=== PATIENT | female | born 1960 | race Caucasian/White ===

== ENCOUNTER → 2023-03-11 | Day surgery (SDC) | payer OTHER ==
--- NOTE | 2023-03-18 11:15 | MM ---
Reason for Exam: Post Procedure Mammogram. Last screening mammogram was performed less than 1 month ago. Patient History: Menarche at age 14. First Full-Term at age 16. Left ovary removed at age 41. Right ovary removed at age 41. Hysterectomy at age 41. Postmenopausal. Maternal unspecified had breast cancer. Risk Values: Heydi 5 year model risk: 1.0%. NCI Lifetime model risk: 4.4%. Prior Study Comparison: 04/28/2001 Bilateral Special View Mammogram, [facility]. 02/26/2023 Bilateral MG 3D diag mammo w/cad BOBBY, [facility]. Tissue Density: Left: There are scattered fibroglandular densities. Pathology Description: Location: 7 o'clock. Marker Left Behind. Needle Type: Mammotome Cores: 12 Skin Nicks: 1 The procedure of ultrasound guided core biopsy was explained to the patient. Benefits, alternatives, and risks were discussed. An informed consent was then obtained. A small 5 mm irregular hypoechoic area 7:00 position 4 cm from the nipple in the left breast is identified and targeted for biopsy. The patient was placed in supine positioning for imaging and for the procedure. The overlying skin was prepped and draped in usual sterile fashion. Lidocaine was used as anesthetic into the skin and subcutaneous tissue up to area of concern in the left breast. Under ultrasound guidance, a 13-gauge vacuum-assisted mammotome Elite biopsy gun was used to obtain 12 core samples. Following this, a Hydromark biopsy clip was left at the site of biopsy The patient tolerated the procedure well without any immediate complication. The patient was kept in the radiology department for short stay after the procedure and then discharged home in stable condition. Postprocedure mammogram: The patient was transferred to mammography for physician ordered post procedure mammogram for clip placement verification. Post procedure mammogram shows clip just adjacent to a superficially located focal asymmetry lower quadrant left breast. Note that this is being viewed with further suspicion as it presented as a patient palpated abnormality. IMPRESSION: Successful, uncomplicated ultrasound guided core biopsy of the small 5 mm, but patient palpated area of concern in the 7:00 left breast, full pathology results to follow. The clip lies just adjacent to the corresponding mammographic focal asymmetry. If benign results, consideration can be given to excision. Pathology Results: Result: Malignant, Invasive ductal carcinoma. LEFT BREAST, 7:00 POSITION, ULTRASOUND GUIDED CORE BIOPSY: Invasive high grade ductal carcinoma. See Surgical Pathology Cancer Case Summary and comment. Overall Assessment: Malignant Assessment: MG diagnostic mammo LT wo CAD. - Left: Known biopsy proven malignancy, BI-RAD 6. Management: Surgical Consultation of the left breast. Electronically signed and approved by: Errol Lovelace M.D. Radiologist
== END ==
LOC: RADUSWWP 12:58
PROVIDERS: ATTEND Family Medicine
DX: C50.912 Malignant neoplasm of unspecified site of left female breast (principal)
CPT/HCPCS: 88305; 88342; 88341; 77065; 19083; A4648

== ENCOUNTER → 2023-04-23 | Outpatient (CLI) | payer OTHER ==
--- NOTE | 2023-04-23 15:15 | P.GSHP ---
History of Present Illness H&P Date: 04/23/23 Chief Complaint: left breast stage IA invasive ductal carcinoma at 7 o'clock position, 832 Giuliana is a 62 year old white female seen in consultation for DR. Ferguson, and Dr. Nolasco. She noted a palpable change in her left breast at 7:00, about 8 weeks ago. This led to bilateral mammogram on 02-26-23. This led to a left breast ultrasound and core biopsy on 03-11-23. The lesion is about 4-5mm in size. Pathology revealed grade 3, triple (+) invasive ductal cancer. She was seen by Dr. Nolasco who recommended surgery first to be followed by radiation and hormonal treatment. Chemo or immono therapy will be decided after surgery. She has not had any surgery on her breast. Not had any recent trauma or infection in her breast. It is not complaining of any other lumps masses or nodules of concern in her breast. She is not complaining of any skin changes in her breast. Caffeine: none nicotine:< 1PPD since 14 years old chocolate: occasional BCP: less than 1 year in her 20's hormones:none Family history: paternal aunt: breasat cancer paternal grandmother: breast cancer Hormonal History: menarche: 14 , breast fed: no, age at : 16 menopause: USMAN hysterectomy at 39; no cancer Surgical History: USMAN/BSO Medical History: boarderline diabetes HTN Social History: nicotine: as above alcohol: occasional drugs: Marijuana daily - Constitutional Constitutional: Denies chills, Denies fever - EENT Eyes: denies blurred vision, denies pain Ears: deny: decreased hearing, tinnitus Ears, nose, mouth and throat: Denies headache, Denies sore throat - Breasts Breasts: bilateral: as per HPI - Cardiovascular Cardiovascular: Reports shortness of breath, Denies chest pain - Respiratory Respiratory: Reports cough - Gastrointestinal Gastrointestinal: Reports as per HPI, Denies abdominal pain, Denies diarrhea, Denies nausea, Denies vomiting - Genitourinary (Female) Genitourinary: Denies dysuria, Denies hematuria - Menstruation Menstruation: Reports post hysterectomy - Musculoskeletal Musculoskeletal: Reports myalgias - Integumentary Integumentary: Denies pruritus, Denies rash - Neurological Neurological: Denies numbness, Denies weakness - Psychiatric Psychiatric: Denies anxiety, Denies depression - Endocrine Endocrine: Denies fatigue, Denies weight change - Hematologic/Lymphatic Comment: none - Allergic/Immunologic Allergic/Immunologic: Reports as per HPI Past Medical History Past Medical History: Diabetes Mellitus, Hypertension History of Any Multi-Drug Resistant Organisms: None Reported Past Surgical History: Hysterectomy Past Anesthesia/Blood Transfusion Reactions: No Reported Reaction Past Psychological History: No Psychological Hx Reported Smoking Status: Current every day smoker Past Alcohol Use History: None Reported Past Drug Use History: None Reported Medications and Allergies Home Medications Medication Instructions Recorded Confirmed Type Benazepril/Hydrochlorothiazide 1 each PO DAILY 02/26/23 04/23/23 History [Benazepril-Hctz 10-12.5 mg Tab] Allergies Allergy/AdvReac Type Severity Reaction Status Date / Time No Known Allergies Allergy Verified 04/23/23 14:26 Surgical - Exam Vital Signs Temp Pulse Resp BP Pulse Ox 98.1 F 90 16 152/93 98 04/23/23 14:50 04/23/23 14:50 04/23/23 14:50 04/23/23 14:50 04/23/23 14:50 - General no distress - Eyes normal ocular movement - ENT no hearing loss - Respiratory normal respiratory effort - Cardiovascular Rhythm: regular Heart Sounds: normal: S1, S2 - Abdomen Abdomen: soft, non tender, no guarding, no rigid, no rebound - Integumentary normal turgor - Neurologic no disoriented, no combative - Musculoskeletal normal gait, normal posture - Psychiatric oriented to time, oriented to person, oriented to place, speech is normal, memory intact Breast Exam: BRA: 38C inspection: bilateral grade 2/3 ptosis palpation: Right breast: Multiple positional exam no dominant masses or nodules of concern Right axilla: No adenopathy of concern Left breast: Multiple positional exam fibrocystic changes, particularly tension at the 7 o'clock position does not reveal a specific lesion, the biopsy site is clean and dry with no evidence of any infection or hematoma Left axilla: No adenopathy of concern Results Mammogram and ultrasound personally reviewed 02-26-23, and 03-11-23 Assessment and Plan Assessment: Impression: left breast invasive ductal carcinoma stage IA Hypertension Nicotine dependence Plan: Presentation of case at tumor board left breast needle localization excisional lumpectomy, possible onco-plastic tissue transfer, sentinel node injection left, left sentinel node biopsy, possible left axillary node dissection Cc: Dr. Ferguson, Dr. Nolasco
[2023-04-23 15:34] VITALS: BP 152/93; PULSE 90; RESP 16; TEMP 98.1
== END ==
LOC: WWCWWP 14:22
PROVIDERS: ATTEND Surgery
DX: C50.912 Malignant neoplasm of unspecified site of left female breast (principal); E11.9 Type 2 diabetes mellitus without complications; F17.210 Nicotine dependence, cigarettes, uncomplicated; I10 Essential (primary) hypertension; Z80.3 Family history of malignant neoplasm of breast

== ENCOUNTER → 2023-05-27 | Outpatient (CLI) | payer OTHER ==
--- NOTE | 2023-05-27 13:37 | P.PN ---
Subjective Progress Note Date: 05/27/23 Principal diagnosis: left breast stage 1 invasive ductal cancer Chief Complaint: left breast stage IA invasive ductal carcinoma at 7 o'clock position, [id number] Giuliana is a 62 year old white female seen in consultation for DR. Ferguson, and Dr. Nolasco. She noted a palpable change in her left breast at 7:00, about 8 weeks ago. This led to bilateral mammogram on 02-26-23. This led to a left breast ultrasound and core biopsy on 03-11-23. The lesion is about 4-5mm in size. Pathology revealed grade 3, triple (+) invasive ductal cancer. She was seen by Dr. Nolasco who recommended surgery first to be followed by radiation and hormonal treatment. Chemo or immono therapy will be decided after surgery. She has not had any surgery on her breast. Not had any recent trauma or infection in her breast. It is not complaining of any other lumps masses or nodules of concern in her breast. She is not complaining of any skin changes in her breast. Note 04-05-23 medical oncology reviewed Caffeine: none nicotine:< 1PPD since 14 years old chocolate: occasional BCP: less than 1 year in her 20's hormones:none Family history: paternal aunt: breasat cancer paternal grandmother: breast cancer Hormonal History: menarche: 14 , breast fed: no, age at : 16 menopause: USMAN hysterectomy at 39; no cancer Surgical History: USMAN/BSO Medical History: boarderline diabetes HTN Social History: nicotine: as above alcohol: occasional drugs: Marijuana daily - Constitutional Constitutional: Denies chills, Denies fever - EENT Eyes: denies blurred vision, denies pain Ears: deny: decreased hearing, tinnitus Ears, nose, mouth and throat: Denies headache, Denies sore throat - Breasts Breasts: bilateral: as per HPI - Cardiovascular Cardiovascular: Reports shortness of breath, Denies chest pain - Respiratory Respiratory: Reports cough - Gastrointestinal Gastrointestinal: Reports as per HPI, Denies abdominal pain, Denies diarrhea, Denies nausea, Denies vomiting - Genitourinary (Female) Genitourinary: Denies dysuria, Denies hematuria - Menstruation Menstruation: Reports post hysterectomy - Musculoskeletal Musculoskeletal: Reports myalgias - Integumentary Integumentary: Denies pruritus, Denies rash - Neurological Neurological: Denies numbness, Denies weakness - Psychiatric Psychiatric: Denies anxiety, Denies depression - Endocrine Endocrine: Denies fatigue, Denies weight change - Hematologic/Lymphatic Comment: none - Allergic/Immunologic Allergic/Immunologic: Reports as per HPI Past Medical History Past Medical History: Diabetes Mellitus, Hypertension History of Any Multi-Drug Resistant Organisms: None Reported Past Surgical History: Hysterectomy Past Anesthesia/Blood Transfusion Reactions: No Reported Reaction Past Psychological History: No Psychological Hx Reported Smoking Status: Current every day smoker Past Alcohol Use History: None Reported Past Drug Use History: None Reported Medications and Allergies Home Medications Medication Instructions Recorded Confirmed Type Benazepril/Hydrochlorothiazide 1 each PO DAILY 02/26/23 04/23/23 History [Benazepril-Hctz 10-12.5 mg Tab] Allergies Allergy/AdvReac Type Severity Reaction Status Date / Time No Known Allergies Allergy Verified 04/23/23 14:26 Objective - Vital Signs Vital signs: Vital Signs Temp 97.8 F 05/27/23 13:22 Pulse 83 05/27/23 13:22 Resp 17 05/27/23 13:22 BP 111/74 05/27/23 13:22 Pulse Ox 97 05/27/23 13:22 FiO2 Intake & Output 05/26/23 05/27/23 05/27/23 18:59 06:59 18:59 Weight 65.771 kg - Constitutional General appearance: Present: cooperative - EENT Eyes: Present: EOMI ENT: Present: hearing grossly normal - Neck Neck: Present: normal ROM - Respiratory Respiratory: bilateral: CTA - Cardiovascular Heart sounds: normal: S1, S2 - Gastrointestinal General gastrointestinal: Present: soft - Integumentary Integumentary: Present: normal turgor - Musculoskeletal Musculoskeletal: Present: gait normal - Psychiatric Psychiatric: Present: A&O x's 3, appropriate affect, intact judgment & insight - Additional findings Additional findings: Breast Exam: BRA: 38C inspection: bilateral grade 2/3 ptosis palpation: Right breast: Multiple positional exam no dominant masses or nodules of concern Right axilla: No adenopathy of concern Left breast: Multiple positional exam fibrocystic changes, particularly attention at the 7 o'clock position does not reveal a specific lesion, the biopsy site is clean and dry with no evidence of any infection or hematoma Left axilla: No adenopathy of concern Assessment and Plan Assessment: Impression: left breast invasive ductal carcinoma stage IA Hypertension Nicotine dependence Plan: Presentation of case at tumor board left breast needle localization excisional lumpectomy, possible onco-plastic tissue transfer, sentinel node injection left, left sentinel node biopsy, possible left axillary node dissection The patients case was presented at tumor board. The plan is for needle local ization lumpectomy, and SNB possible AND. Possible oncoplastic tissue transfer. I have called and spoken with the patient regarding this. Surgical options have been discussed with the patient, including risks and benefits. Risks include but are not limited to bleeding, infection, reaction to the anesthetic. There is a risk of the margins are positive that additional guan rgery would be needed if patient chooses a lumpectomy. We have also discussed lymphedema, decreased sensation to the inner arm, and possible injury to the thoracodorsal and long thoracic nerves. The patient understands and wishes to proceed. The following will be done. Cc: Dr. Constance Fernandez
[2023-05-27 13:39] VITALS: BP 111/74; PULSE 83; RESP 17; TEMP 97.8
== END ==
LOC: WWCWWP 12:41
PROVIDERS: ATTEND Surgery
DX: C50.912 Malignant neoplasm of unspecified site of left female breast (principal); E11.9 Type 2 diabetes mellitus without complications; F17.210 Nicotine dependence, cigarettes, uncomplicated; I10 Essential (primary) hypertension; Z80.3 Family history of malignant neoplasm of breast; Z88.8 Allergy status to other drugs, medicaments and biological substances; Z79.899 Other long term (current) drug therapy

== ENCOUNTER 2023-06-01 07:20 | Day surgery (SDC) | payer OTHER ==
[~2023-06-01 07:20] MED LIST: DEXAMETHASONE SOD PHOSPHATE 4 MG/ML 1 ML VIAL IV ONE; HEPARIN SODIUM,PORCINE/PF 5,000 UNIT/0.5 ML SYRINGE SQ PRN; HYDROmorphone 0.5 MG/0.5 ML SYRINGE IVP PRN; LACTATED RINGERS 1,000 ML IV SCH; LIDOCAINE 1% (10MG/ML) FOR IV START INTRADERMA PRN; ONDANSETRON 4 MG/2 ML VIAL IVP ONE; droPERidol 5 MG/2 ML VIAL IVP ONE
[2023-06-01] MEDS ORDERED: ALPRAZolam 0.5 MG TAB ONE (07:55)
[2023-06-01] MEDS ORDERED: ALPRAZolam 0.5 MG TAB PO ONE (07:59)
[2023-06-01] MEDS ORDERED: LIDOCAINE 1% INJ 10MG/ML (20 ML MDV) SQ ONE (08:42)
--- NOTE | 2023-06-01 09:24 | P.NAPBC ---
NAPBC Queries - NAPBC Queries Was patient's case review presented at [facility] tumor board? If no, comment.: Yes Was patient's pathology reviewed at [facility]? If no, comment.: Yes Was breast conservation surgery offered? If no, comment.: Yes Was sentinel node biopsy offered? If no, comment.: Yes Was diagnosis confirmed by percutaneous core biopsy? If no, comment.: Yes Is patient mastectomy patient?: No Was a preop referral to reconstructive surgeon offered?: No Clinical Stage: Stage 1 left breast invasive ductal cancer [id number]
[2023-06-01] MEDS ORDERED: SUCCINYLCHOLINE CHLORIDE 200 MG/10 ML VIAL IV ONE (09:29)
[2023-06-01] MEDS ORDERED: PROPOFOL 10 MG/ML 20 ML VIAL IV ONE (09:29)
[2023-06-01] MEDS ORDERED: LIDOCAINE 1% INJ 10MG/ML (20 ML MDV) ONE (09:29)
[2023-06-01] MEDS ORDERED: fentaNYL (PF) 50 MCG/ML 2 ML AMP ONE (09:29)
--- NOTE | 2023-06-01 10:43 | NM ---
EXAMINATION TYPE: NM sentinel node injection DATE OF EXAM: 06/01/2023 COMPARISON: NONE CLINICAL INDICATION: Female, 62 years old with history of Breast cancer; TECHNIQUE AND FINDINGS: The procedure of sentinel lymph node injection was explained to the patient. The benefits, alternatives, and risks were discussed. An informed consent was then obtained. Overlying skin is cleaned with sterile alcohol. Following this, 475 uCi Tc99m Tilmanocept was inject ed in the upper outer aspect of the left nipple intradermally. The patient tolerated the procedure well without any immediate complication. The patient was kept in the radiology department for short stay after the procedure and then taken to surgery for surgical p rocedure what is presumed intraoperative gamma probe will be used for sentinel lymph node detection. IMPRESSION: left breast radiotracer injection for sentinel node localization as above.
--- NOTE | 2023-06-01 10:55 | P.OP ---
Date of Procedure: 06/01/23 Preoperative Diagnosis: Left breast invasive ductal carcinoma Postoperative Diagnosis: Same Procedure(s) Performed: Left breast sentinel node biopsy, needle localization lumpectomy, onco-plastic tissue transfer 65 cm Anesthesia: SHARLAA Surgeon: Alexandrea Miner Estimated Blood Loss (ml): 5 IV fluids (ml): 500 Pathology: other (Axillarytissue, lumpectomy left breast) Condition: stable Disposition: same day Indications for Procedure: Biopsy-proven left breast invasive ductal carcinoma Operative Findings: Fibrofatty breast tissue Description of Procedure: The patient is a 62-year-old white female diagnosed with a left breast invasive ductal carcinoma. Preoperatively she underwent needle localization in the radiology department. Additionally radi0 tracer was injected in the periareolar region. The patient was brought to the operative suite. Following induction of anesthesia the neoprobe was used to interrogate the axilla. Radioactivity was noted to be present. The left breast and axilla were then prepped and draped in a sterile fashion. The axilla was approached initially. Using the neoprobe the area of greatest radioactivity was identified. An incision was made and carried down to the area of increased radioactivity. This was in the deep axillary tissue. The surrounding tissue was excised. Three sentinel lymph nodes were identified. [place] node #1 had a 10 second count of 2244, sentinel lymph node #2, 10 second count of 21,520, sentinel node #3 had a 10 second count of 11,707. The background count was 37. No other lymph nodes of concern were identified. The deep tissues were closed using 3-0 Vicryl suture after we were assured that hemostasis was attained. The subcutaneous tissues were closed using 3-0 Vicryl suture. The skin was closed using a subcuticular 4-0 Monocryl suture. Following this the area of the breast was approached. An incision was made near the needle which was localizing the lesion. Dissection was carried down to the shaft of the needle. Surrounding tissue was excised. Anteriorly dissection was performed directly under the skin. Posteriorly dissection was performed to the muscle of the chest wall. The specimen size was 7 x 6 cm. Following this the specimen was removed and painted for orientation. Radiograph revealed that the area of concern had been removed. A superior pillar 6 x 3 cm was developed. Inferior pillar 5 x 1 cm was developed. Titanium clips were placed. The pillars were brought together using 3-0 Vicryl suture. Onco-plastic tissue transfer of 65 cm was developed. After we were assured that hemostasis was attained the subcutaneous tissues were closed using 3-0 Vicryl suture. This was followed by closure of the skin using 4-0 Monocryl. The patient tolerated the procedure in stable condition. All instrument and sponge counts were correct at the end of the case.
[2023-06-01 11:17] VITALS: TEMP 97.2
[2023-06-01] MEDS ORDERED: HYDROcodone/APAP 5-325MG 1 EACH TAB ONE (12:22)
[2023-06-01] MEDS ORDERED: HYDROcodone/APAP 5-325MG 1 EACH TAB PO ONE (12:23)
[2023-06-01 13:39] VITALS: BP 138/75; PULSE 61; RESP 18
--- NOTE | 2023-06-08 09:11 | MM ---
Pathology Description: Approach: Medial to Lateral Needle Type: 5 cm [place] Skin Nicks: 1 The procedure of needle localization with wire placement and than surgical excision was explained to the patient. Benefits, alternatives, and risks were discussed. An informed consent was then obtained. The shortest pathway for procedure was chosen. Shortest pathway was medial approach. The overlying skin was prepped and draped in usual sterile fashion. Lidocaine buffered with bicarbonate was used as anesthetic into the skin and subcutaneous tissue up to the level of area of concern. A 5 cm needle was used. It was placed via a mediolateral approach under mammographic guidance. Subsequent 90 degrees mammogram show the needle to be in satisfactory position relative to the targeted area. At this point, wire was placed and the needle was withdrawn. The wire was fixed to patient's skin. Images were marked for surgeon. The patient tolerated the procedure well without any immediate complication. The patient was kept in the radiology department for short stay after the procedure and then taken to surgery for surgical excision. Targeted clip and wire are identified in specimen mammogram. The patient was kept in hospital for short stay after the procedure and then discharged home in stable condition. Impression: Successful, uncomplicated needle localization with wire placement and surgical excision of suspicious group of calcifications in the left breast, full pathology results to follow. Pathology Results: Result: Malignant, Invasive ductal carcinoma. A. SENTINEL LYMPH NODE #1, DISSECTION: One sentinel lymph node, negative for metastatic carcinoma. CK7 and ANA MARIA stains performed with appropriate controls on blocks A1 and A2 all negative for features of metastatic carcinoma. B. SENTINEL LYMPH NODE #2, DISSECTION: One sentinel lymph node, negative for metastatic carcinoma. CK7 and ANA MARIA stains performed with appropriate controls on block B1 all negative for features of metastatic carcinoma. C. SENTINEL LYMPH NODE #3, DISSECTION: Two sentinel lymph nodes, each negative for metastatic carcinoma. CK7 and ANA MARIA stains performed with appropriate controls on blocks C1 and C2 all negative for features of metastatic carcinoma. D. LEFT BREAST, LUMPECTOMY: Invasive high grade ductal carcinoma with high grade ductal carcinoma in situ (DCIS). See surgical pathology cancer case summary and comment. All margins negative for invasive carcinoma and DCIS. Overall Assessment: Malignant Management: Surgical Consultation of the left breast. Diagnostic Mammogram of the left breast in 6 months. Electronically signed and approved by: Eladio Mccabe M.D. Radiologis
== END 2023-06-01 13:15 | disposition home or self-care (01) ==
LOC: OR 07:20
PROVIDERS: ATTEND Surgery
DX: D05.12 Intraductal carcinoma in situ of left breast (principal); I10 Essential (primary) hypertension; F12.90 Cannabis use, unspecified, uncomplicated; F17.210 Nicotine dependence, cigarettes, uncomplicated; Z79.899 Other long term (current) drug therapy
CPT/HCPCS: 38525; 84132; 88342; 88307; 88341; 76098; 19281; 38792; 19301; C1819; A9520; J0330; J1100; J2405; J2001; J3010; J2704; J1644

== ENCOUNTER → 2023-06-11 | Outpatient (CLI) | payer OTHER ==
--- NOTE | 2023-06-11 09:51 | P.PN ---
Progress Note - Text Progress Note Date: 06/11/23 Giuliana is a 62 year old female status post left breast lumpectomy and SNB on 06-01-23. Four Sentinal nodes were removed all (-) for cancer. All margins were (-). Tumor 11mm in sized, closest to anterior margin. Tumor high grade invasive ductal and DCIS. Emanation: Lungs: Slight wheezing at the right base Heart: Regular rate and rhythm Incision axilla and breast clean and dry no evidence of infection Mild ecchymosis left breast Impression: Patient doing well Plan: Follow-up medical oncology Follow-up radiation oncology Follow-up appearance 4 months CC: CC: Lexus Valencia
[2023-06-11 11:51] VITALS: BP 136/87; PULSE 84; RESP 17; TEMP 98.3
== END ==
LOC: WWCWWP 09:40
PROVIDERS: ATTEND Surgery
DX: L76.82 Other postprocedural complications of skin and subcutaneous tissue (principal); Z88.8 Allergy status to other drugs, medicaments and biological substances

== ENCOUNTER → 2023-08-13 | Outpatient (CLI) | payer OTHER ==
[2023-08-13 15:57] VITALS: BP 182/81; PULSE 92; RESP 17; TEMP 97.9
--- NOTE | 2023-08-13 15:59 | P.PN ---
Subjective Progress Note Date: 08/13/23 left breast stage IA invasive ductal carcinoma at 7 o'clock position, [id number] Giuliana is a 63 year old white female seen in consultation for DR. Ferguson, and Dr. Nolasco. She noted a palpable change in her left breast at 7:00. This led to bilateral mammogram on 02-26-23. This led to a left breast ultrasound and core biopsy on 03-11-23. The lesion is about 4-5mm in size. Pathology revealed grade 3, triple (+) invasive ductal cancer. She was seen by Dr. Nolasco who recommended surgery first to be followed by radiation and hormonal treatment. Chemo or immono therapy to be decided after surgery. The patient had a left breast lumpectomy and SNB on 06-01-23. Tumor 11 mm high grade invasive ductal and DCIS. Four sentinel nodes all (-). [facility] oncology 07-16-23 recommended radiation therapy appointment 06-23-23 medical oncology recommended chemotherapy ad hormone therapy She complains of some intermittent sporadic pain in her breast. She was recently started on a prescription for antibiotics and the pain has resolved. She has not had any fever or chills. Caffeine: none nicotine:< 1PPD since 14 years old chocolate: occasional BCP: less than 1 year in her 20's hormones:none Family history: paternal aunt: breasat cancer paternal grandmother: breast cancer Hormonal History: menarche: 14 , breast fed: no, age at : 16 menopause: USMAN hysterectomy at 39; no cancer Surgical History: USMAN/BSO Medical History: boarderline diabetes HTN Social History: nicotine: as above alcohol: occasional drugs: Marijuana daily - Constitutional Constitutional: Denies chills, Denies fever - EENT Eyes: denies blurred vision, denies pain Ears: deny: decreased hearing, tinnitus Ears, nose, mouth and throat: Denies headache, Denies sore throat - Breasts Breasts: bilateral: as per HPI - Cardiovascular Cardiovascular: Reports shortness of breath, Denies chest pain - Respiratory Respiratory: Reports cough - Gastrointestinal Gastrointestinal: Reports as per HPI, Denies abdominal pain, Denies diarrhea, Denies nausea, Denies vomiting - Genitourinary (Female) Genitourinary: Denies dysuria, Denies hematuria - Menstruation Menstruation: Reports post hysterectomy - Musculoskeletal Musculoskeletal: Reports myalgias - Integumentary Integumentary: Denies pruritus, Denies rash - Neurological Neurological: Denies numbness, Denies weakness - Psychiatric Psychiatric: Denies anxiety, Denies depression - Endocrine Endocrine: Denies fatigue, Denies weight change - Hematologic/Lymphatic Comment: none - Allergic/Immunologic Allergic/Immunologic: Reports as per HPI Past Medical History Past Medical History: Diabetes Mellitus, Hypertension History of Any Multi-Drug Resistant Organisms: None Reported Past Surgical History: Hysterectomy Past Anesthesia/Blood Transfusion Reactions: No Reported Reaction Past Psychological History: No Psychological Hx Reported Smoking Status: Current every day smoker Past Alcohol Use History: None Reported Past Drug Use History: None Reported Medications and Allergies Home Medications Medication Instructions Recorded Confirmed Type Benazepril/Hydrochlorothiazide 1 each PO DAILY 02/26/23 04/23/23 History [Benazepril-Hctz 10-12.5 mg Tab] Allergies Allergy/AdvReac Type Severity Reaction Status Date / Time No Known Allergies Allergy Verified 04/23/23 14:26 Objective - Vital Signs Vital signs: Vital Signs Temp 97.9 F 08/13/23 15:37 Pulse 92 08/13/23 15:37 Resp 17 08/13/23 15:37 BP 182/81 08/13/23 15:37 Pulse Ox 97 08/13/23 15:37 FiO2 Intake & Output 08/12/23 08/13/23 08/13/23 18:59 06:59 18:59 Weight 61.235 kg - Constitutional General appearance: Present: cooperative - EENT Eyes: Present: EOMI ENT: Present: hearing grossly normal - Neck Neck: Present: normal ROM - Respiratory Respiratory: bilateral: CTA - Cardiovascular Heart sounds: normal: S1, S2 - Integumentary Integumentary: Present: normal turgor - Musculoskeletal Musculoskeletal: Present: gait normal - Psychiatric Psychiatric: Present: A&O x's 3, appropriate affect, intact judgment & insight - Additional findings Additional findings: Breast Exam: BRA: 38C inspection: bilateral grade 2/3 ptosis palpation: Right breast: Multiple positional exam no dominant masses or nodules of concern Right axilla: No adenopathy of concern Left breast: Multiple positional exam fibrocystic changes, well healed scar 6 o'clock position no evidence of any recurrent cancer no evidence of infection or hematoma Left axilla: No adenopathy of concern Assessment and Plan Assessment: Impression: Left breast invasive ductal carcinoma stage I a ER/UT positive HER-2/carrol po sitive Plan: Patient is going to have chemotherapy as per Dr. Nolasco Patient will then follow with radiation oncology Patient will follow up here in 4 months Bilateral mammogram in February with examination at that time CC: Dr. Ferguson
== END ==
LOC: WWCWWP 14:57
PROVIDERS: ATTEND Surgery
DX: C50.912 Malignant neoplasm of unspecified site of left female breast (principal); E11.9 Type 2 diabetes mellitus without complications; I10 Essential (primary) hypertension; F17.200 Nicotine dependence, unspecified, uncomplicated; Z90.710 Acquired absence of both cervix and uterus; Z51.11 Encounter for antineoplastic chemotherapy; Z80.3 Family history of malignant neoplasm of breast; Z90.722 Acquired absence of ovaries, bilateral; Z88.5 Allergy status to narcotic agent; F12.90 Cannabis use, unspecified, uncomplicated

== ENCOUNTER → 2023-09-06 | Outpatient (CLI) | payer OTHER ==
--- NOTE | 2023-09-07 10:04 | CA ---
Transthoracic Echo Report Name: Giuliana Rehman Age: 63 Gender: F : 1960 Exam Date: 09/06/2023 15:44 Exam Location: [place] [facility] Ht (in): 63 Wt (lb): 140 Ordering Physician: Patrick Nolasco MD Attending/Referring Phys: Patrick Nolasco MD Leather Worker Maureen Ackerman [facility] Procedure CPT: Indications: Z01.818 Chemo Cardiac Hx: Technical Quality: Fair Contrast 1: Total Dose (mL): Contrast 2: Total Dose (mL): MEASUREMENTS (Male / Female) Normal Values 2D ECHO LV Diastolic Diameter PLAX 4.4 cm 4.2 - 5.9 / 3.9 - 5.3 cm LV Systolic Diameter PLAX 3.1 cm IVS Diastolic Thickness 1.0 cm 0.6 - 1.0 / 0.6 - 0.9 cm LVPW Diastolic Thickness 0.9 cm 0.6 - 1.0 / 0.6 - 0.9 cm LV Relative Wall Thickness 0.4 LVOT Diameter 2.0 cm M-MODE Aortic Root Diameter MM 2.5 cm LA Systolic Diameter MM 3.6 cm LA Ao Ratio MM 1.4 AV Cusp Separation MM 1.9 cm DOPPLER AV Peak Velocity 107.8 cm/s AV Peak Gradient 4.6 mmHg AV Mean Velocity 68.3 cm/s AV Mean Gradient 2.2 mmHg AV Velocity Time Integral 19.5 cm LVOT Peak Velocity 95.7 cm/s LVOT Peak Gradient 3.7 mmHg LVOT Velocity Time Integral 15.3 cm LVOT Stroke Volume 46.1 cm??? LVOT Stroke Volume Index 27.7 ml/m??? LVOT Cardiac Index 2233.3 cm???/min???m??? AV Area Cont Eq vti 2.4 cm??? AV Area Cont Eq pk 2.7 cm??? Mitral E Point Velocity 53.4 cm/s Mitral A Point Velocity 102.3 cm/s Mitral E to A Ratio 0.5 MV Deceleration Time 230.8 ms LV E' Lateral Velocity 8.1 cm/s Mitral E to LV E' Lateral Ratio 6.6 LV E' Septal Velocity 6.8 cm/s Mitral E to LV E' Septal Ratio 7.8 Right Atrial Pressure 3.0 mmHg FINDINGS Left Ventricle Mild concentric LVH. Left ventricular cavity size normal. Normal left ventricular systolic function with no obvious regional wall motion abnormalities. Left ventricular ejection fraction is estimated at 60-65%. Right Ventricle Normal right ventricular size. Right Atrium Normal right atrial size. Left Atrium Normal left atrial size. Mitral Valve Structurally normal mitral valve. No mitral regurgitation. Aortic Valve Aortic valve not well visualized. No aortic valve stenosis or regurgitation. Tricuspid Valve Structurally normal tricuspid valve. No tricuspid regurgitation. Pulmonic Valve Pulmonic valve not well visualized. Pericardium Minimal pericardial effusion (normal variant). Echo free space anterior to the right ventricle likely represents a fat pad. Aorta Normal size aortic root. CONCLUSIONS Left ventricular ejection fraction is estimated at 60-65%. No obvious regional wall motion abnormalities. Mild concentric LVH. Grade 1 diastolic dysfunction No significant valvular dysfunction Global longitudinal streaking estimated at -17.2%. (Normal -20%) Previewed by: Dr Alexis Lozada (Electronically Signed) Final Date: 07 September 2023 10:03
== END | disposition home or self-care (01) ==
LOC: RADECHMAIN 15:40
PROVIDERS: ATTEND Internal Medicine Hematology & Oncology
DX: Z01.818 Encounter for other preprocedural examination (principal); I10 Essential (primary) hypertension; E78.5 Hyperlipidemia, unspecified; C50.312 Malignant neoplasm of lower-inner quadrant of left female breast; E11.9 Type 2 diabetes mellitus without complications; Z17.0 Estrogen receptor positive status [ER+]
CPT/HCPCS: 93306

== ENCOUNTER → 2023-12-06 | Outpatient (CLI) | payer OTHER ==
--- NOTE | 2023-12-06 19:39 | CA ---
Transthoracic Echo Report Name: Giuliana Rehman Age: 63 Gender: F : 1960 Exam Date: 12/06/2023 16:03 Exam Location: [place] [facility] Ht (in): 64 Wt (lb): 141 Ordering Physician: Patrick Nolasco MD Attending/Referring Phys: Substitute Teacher Thelma Davila RDCS Procedure CPT: Indications: Z01.818 Chemo exposure Cardiac Hx: Technical Quality: Good Contrast 1: Total Dose (mL): Contrast 2: Total Dose (mL): MEASUREMENTS (Male / Female) Normal Values 2D ECHO LV Diastolic Diameter PLAX 4.0 cm 4.2 - 5.9 / 3.9 - 5.3 cm LV Systolic Diameter PLAX 3.1 cm IVS Diastolic Thickness 1.1 cm 0.6 - 1.0 / 0.6 - 0.9 cm LVPW Diastolic Thickness 1.1 cm 0.6 - 1.0 / 0.6 - 0.9 cm LV Relative Wall Thickness 0.5 RV Internal Dim ED PLAX 3.1 cm LA Systolic Diameter LX 3.6 cm 3.0 - 4.0 / 2.7 - 3.8 cm LA Volume 47.8 cm??? 18 - 58 / 22 - 52 cm??? LA Volume Index 28.0 cm???/m??? 16 - 28 cm???/m??? Aorta at Sinotubular Diameter 3.5 cm DOPPLER AV Peak Velocity 139.8 cm/s AV Peak Gradient 7.8 mmHg FINDINGS Left Ventricle Left ventricular ejection fraction is estimated at 50-55 %. Left ventricular cavity size normal. Mildly increased septal wall thickness. Mildly increased posterior wall thickness. Right Ventricle Normal right ventricular size. Unable to estimate the right ventricular systolic pressure. Right Atrium Normal right atrial size. Left Atrium Normal left atrial size. Mitral Valve Structurally normal mitral valve. No mitral stenosis, regurgitation or prolapse. Aortic Valve Trileaflet aortic valve. No aortic valve stenosis or regurgitation. Tricuspid Valve Structurally normal tricuspid valve. No tricuspid stenosis, regurgitation or prolapse. Pulmonic Valve Pulmonic valve not well visualized. Pericardium No pericardial effusion. Aorta Normal size aortic root and proximal ascending aorta. CONCLUSIONS Normal biventricular dimensions and systolic function No significant valvular abnormalities noted Normal aortic root and proximal ascending aorta Previewed by: Dr. Yury Westfall MD (Electronically Signed) Final Date: 06 December 2023 19:38
== END | disposition home or self-care (01) ==
LOC: RADECHMAIN 15:48
PROVIDERS: ATTEND Internal Medicine Hematology & Oncology
DX: Z01.818 Encounter for other preprocedural examination (principal); C50.312 Malignant neoplasm of lower-inner quadrant of left female breast; I10 Essential (primary) hypertension; E11.9 Type 2 diabetes mellitus without complications; Z17.0 Estrogen receptor positive status [ER+]
CPT/HCPCS: 93306

== ENCOUNTER → 2023-12-06 | Outpatient (CLI) | payer OTHER | END | disposition home or self-care (01) | LOC: LABWHC1 11:33 | PROVIDERS: ATTEND Obstetrics & Gynecology Obstetrics | DX: N83.209 Unspecified ovarian cyst, unspecified side (principal); R19.00 Intra-abdominal and pelvic swelling, mass and lump, unspecified site | CPT/HCPCS: 36415; 81503 ==

== ENCOUNTER → 2024-05-12 | Outpatient (CLI) | payer OTHER ==
--- NOTE | 2024-05-12 13:27 | CA ---
Transthoracic Echo Report Name: Giuliana Rehman Age: 63 Gender: F : 1960 Exam Date: 05/12/2024 10:24 Exam Location: [place] [facility] Ht (in): 64 Wt (lb): 138 Ordering Physician: Patrick Nolasco MD Attending/Referring Phys: Patrick Nolasco MD Gear Shaver Set Up Operator Ml Sykes RDCS Procedure CPT: Indications: Z01.818 Chemo Cardiac Hx: Technical Quality: Fair Contrast 1: Total Dose (mL): Contrast 2: Total Dose (mL): MEASUREMENTS (Male / Female) Normal Values 2D ECHO LV Diastolic Diameter PLAX 4.0 cm 4.2 - 5.9 / 3.9 - 5.3 cm LV Systolic Diameter PLAX 2.3 cm IVS Diastolic Thickness 1.2 cm 0.6 - 1.0 / 0.6 - 0.9 cm LVPW Diastolic Thickness 1.2 cm 0.6 - 1.0 / 0.6 - 0.9 cm LV Relative Wall Thickness 0.6 RV Internal Dim ED PLAX 3.0 cm LA Volume 31.3 cm??? 18 - 58 / 22 - 52 cm??? LA Volume Index 18.5 cm???/m??? 16 - 28 cm???/m??? M-MODE Aortic Root Diameter MM 2.9 cm LA Systolic Diameter MM 3.9 cm LA Ao Ratio MM 1.4 AV Cusp Separation MM 2.2 cm DOPPLER AV Peak Velocity 116.0 cm/s AV Peak Gradient 5.4 mmHg AV Mean Velocity 71.1 cm/s AV Mean Gradient 2.5 mmHg AV Velocity Time Integral 20.6 cm LVOT Peak Velocity 106.6 cm/s LVOT Peak Gradient 4.5 mmHg LVOT Velocity Time Integral 22.4 cm MV Area PHT 3.3 cm??? Mitral E Point Velocity 70.3 cm/s Mitral A Point Velocity 106.9 cm/s Mitral E to A Ratio 0.7 MV Deceleration Time 228.7 ms MV E' Velocity 7.1 cm/s Mitral E to MV E' Ratio 10.0 FINDINGS Left Ventricle Mildly increased left ventricular wall thickness. Left ventricular cavity size normal. Normal left ventricular systolic function with no obvious regional wall motion abnormalities. Left ventricular ejection fraction is estimated at 55-60 %. Grade 1 diastolic dysfunction. LV strain was attempted but images were suboptimal. Right Ventricle Normal right ventricular size and function. Right ventricular systolic pressure within normal limits. Right Atrium Normal right atrial size. Left Atrium Normal left atrial size. Mitral Valve Structurally normal mitral valve. Mild mitral annular calcification. Trace mitral regurgitation. Aortic Valve Trileaflet aortic valve. No aortic valve stenosis or regurgitation. Tricuspid Valve Structurally normal tricuspid valve. Trace to mild tricuspid regurgitation. Pulmonic Valve Structurally normal pulmonic valve. Pericardium No pericardial effusion. Aorta Normal size aortic root and proximal ascending aorta. CONCLUSIONS LVEF 55 to 60% No obvious regional wall motion abnormality Mild concentric LVH Grade 1 diastolic function Normal RV size and systolic function No significant valvular dysfunction Previewed by: Dr Alexis Lozada (Electronically Signed) Final Date: 12 May 2024 13:26
== END | disposition home or self-care (01) ==
LOC: RADECHMAIN 10:06
PROVIDERS: ATTEND Internal Medicine Hematology & Oncology
DX: Z01.818 Encounter for other preprocedural examination (principal); I08.1 Rheumatic disorders of both mitral and tricuspid valves
CPT/HCPCS: 93306

== ENCOUNTER → 2024-05-12 | Outpatient (CLI) | payer OTHER ==
--- NOTE | 2024-05-12 12:30 | BD ---
EXAMINATION TYPE: Axial Bone Density DATE OF EXAM: 05/12/2024 CLINICAL HISTORY: 63 years old Female. ICD-10 CODE: M81.0 OSTEO Height: 64 Weight: 138.0 FRAX RISK QUESTIONS: Alcohol (3 or more units per day): NO Family History (Parent hip fracture): no Glucocorticoids (More than 3mos): no (Ex: prednisone, prednisolone, methylprednisolone, dexamethasone, and hydrocortisone). History of Fracture in Adulthood: no Secondary Osteoporosis: 1. Type 1 Diabetes: no 2. Hyperthyroidism: no 3. Menopause before 45: no 4. Malnutrition: no 5. Chronic liver disease: no Rheumatoid Arthritis: no Current Tobacco Use: yes RISK FACTORS HISTORY OF: Hip Fracture (Right/Left): no Spine Fracture: no History of Wrist Fracture: no Surgery to Spine/Hip(right/left)/Wrist (right/left): no MEDICATIONS: Thyroid Medications: no Osteoporosis Medications: no Breast Ca. 2022 with chemo and radiation EXAM MEASUREMENTS: Bone mineral densitometry was performed using the [employer] System. Bone mineral density as measured about the Lumbar spine is: ----- L1-L4(G/cm2): 1.457 T Score Values are as follows: ----- L1: 0.8 ----- L2: 2.0 ----- L3: 3.4 ----- L4: 2.6 ----- L1-L4: 2.3 Z Score Values are as follows: ----- L1: 2.4 ----- L2: 3.7 ----- L3: 5.0 ----- L4: 4.2 ----- L1-L4: 4.0 Baseline Study Bone mineral density about the R hip (g/cm2): 0.949 Bone mineral density about the L hip (g/cm2): 0.981 T Score values are as follows: -----R Neck: -0.6 -----L Neck: -0.4 -----R Total: -0.58 -----L Total: -0.2 Z Score values are as follows: -----R Neck: 0.8 -----L Neck: 1.1 -----R Total: 0.8 -----L Total: 1.0 Baseline Study FRAX%s: The graph provided illustrates a 7.1 % chance for a major osteoporotic fx and a 0.7% chance f or the hips probability for fx in 10 years time. IMPRESSION: Normal (Values between +1 and -1 indicate normal bone mass). Consider repeating this study in 5 year s or sooner if there is some new clinical indication. NOTE: T-SCORE=SD OF THE YOUNG ADULT MEAN. [facility], , 05/12/2024 12:27 PM
== END | disposition home or self-care (01) ==
LOC: RADBDWWP 09:45
PROVIDERS: ATTEND Internal Medicine Hematology & Oncology
DX: C50.312 Malignant neoplasm of lower-inner quadrant of left female breast (principal); M81.0 Age-related osteoporosis without current pathological fracture; E11.9 Type 2 diabetes mellitus without complications; I10 Essential (primary) hypertension; Z17.0 Estrogen receptor positive status [ER+]
CPT/HCPCS: 77080